=== PATIENT | male | born 1970 | race Hispanic/Latino ===

== ENCOUNTER 2017-02-28 09:39 | Emergency (ER) | payer SELFPAY ==
[2017-02-28 09:49] VITALS: BMI 28.8
[2017-02-28 09:50] VITALS: TEMP 97.9; O2SAT 97
--- NOTE | 2017-02-28 10:19 | C.PDOC ---
History Of Present Illness 48 y/o male, with history of HTN, presents to emergency department with complaint of intermittent left sided chest discomfort for the last few weeks. Patient reports he felt radiation of discomfort to the left arm / posterior shoulder last night, prompting visit. Patient reports pain worsens with movement of the arm. He also notes he lifts weights for exercise. Also admits to tobacco use. Otherwise, denies fever, chills, cough, diaphoresis, nausea, vomiting, SOB, abdominal pain. Patient does note that he has been "getting winded" after climbing 2 flights of stairs, which is unusual for him. Time Seen by Provider: 02/28/17 10:13 Chief Complaint (Nursing): Chest Pain History Per: Patient History/Exam Limitations: no limitations Onset/Duration Of Symptoms: Days, Intermittent Episodes Current Symptoms Are (Timing): Still Present Quality: "Pain" Associated Symptoms: denies: Diaphoresis Recent travel outside of the [place]: No Past Medical History Reviewed: Historical Data, Nursing Documentation, Vital Signs Vital Signs: Last Vital Signs Temp 97.9 F 02/28/17 09:49 Pulse 68 02/28/17 12:25 Resp 18 02/28/17 09:49 BP 105/70 02/28/17 12:25 Pulse Ox 97 02/28/17 12:32 - Medical History PMH: HTN Family History: States: Unknown Family Hx - Social History Hx Alcohol Use: No Hx Substance Use: No Review Of Systems Except As Marked, All Systems Reviewed And Found Negative. Constitutional: Negative for: Fever, Chills Cardiovascular: Positive for: Chest Pain. Negative for: Palpitations, Edema, Light Headedness Respiratory: Positive for: SOB with Excertion. Negative for: Cough, Shortness of Breath, Wheezing Gastrointestinal: Negative for: Nausea, Vomiting, Abdominal Pain Skin: Negative for: Rash Neurological: Negative for: Headache, Dizziness Physical Exam - Physical Exam Appears: Non-toxic, No Acute Distress, Other (well-developed muscular male) Skin: Normal Color, Warm, Dry, No Rash Head: Atraumatic, Normacephalic Eye(s): bilateral: Normal Inspection, PERRL, EOMI Oral Mucosa: Moist Chest: Symmetrical, Tenderness (slightly reproducible pain to chest wall, discomfort with flexion/extension of left arm) Cardiovascular: Rhythm Regular Respiratory: Normal Breath Sounds, No Accessory Muscle Use, No Rales, No Rhonchi , No Wheezing Gastrointestinal/Abdominal: Soft, No Tenderness, No Guarding, No Rebound Back: Normal Inspection Extremity: Normal ROM, Capillary Refill (< 2 sec.) Neurological/Psych: Oriented x3, Normal Speech, Normal Cognition ED Course And Treatment - Laboratory Results Result Diagrams: 02/28/17 10:47 02/28/17 10:47 ECG: Interpreted By Me, Viewed By Me ECG Rhythm: Sinus Bradycardia Interpretation Of ECG: No ST/T wave elevation or depression. Rate From EC (BPM) O2 Sat by Pulse Oximetry: 97 (RA) Pulse Ox Interpretation: Normal - Radiology CXR: Interpreted by Me CXR Interpretation: Yes: No Acute Disease. No: Infiltrates Medical Decision Making Medical Decision Making: Plan: * EKG * CxR * Aspirin * Reassess Progress Notes: Disposition - Disposition Referrals: [facility] [Outside] Disposition: HOME/ ROUTINE Disposition Time: 12:49 Condition: STABLE Additional Instructions: Follow up with your doctor or our clinic. Take one aspirin a day until you see another physician. Return to the Emergency Department with any further concerns. Prescriptions: Aspirin 81 mg PO DAILY #30 tab.chew Instructions: Chest Wall Pain (ED) Forms: [facility] (Bengali), General Discharge Instructions - Clinical Impression Clinical Impression: Chest wall pain - Scribe Statement The provider has reviewed the documentation as recorded by the Scribjulian Mcgee All medical record entries made by the Scribe were at my direction and personally dictated by me. I have reviewed the chart and agree that the record accurately reflects my personal performance of the history, physical exam, medical decision making, and the department course for this patient. I have also personally directed, reviewed, and agree with the discharge instructions and disposition.
[2017-02-28 10:51] LABS: BASO % 0.4 % (0.0-2.0); EOS # 0.1 K/uL (0.0-0.7); EOS % 0.9 % (0.0-4.0); HEMATOCRIT 44.7 % (35.0-51.0); LYMPH # 1.1 K/uL (1.0-4.3); LYMPH % 12.3 % (20.0-40.0); MEAN CELL VOLUME 93.6 fL (80.0-94.0); MEAN CORPUSCULAR HEMOGLOBIN 32.2 pg (27.0-31.0); MEAN CORPUSCULAR HGB CONC 34.4 g/dL (33.0-37.0); MEAN PLATELET VOLUME 8.8 fL (7.2-11.7); MONO # 0.4 K/uL (0.0-0.8); MONO % 4.2 % (0.0-10.0); RED CELL DISTRIBUTION WIDTH 13.5 % (11.5-14.5); WHITE BLOOD COUNT 8.9 K/uL (4.8-10.8)
[2017-02-28 10:58] LABS: CHLORIDE 99 mmol/L (98-107); SODIUM 137 mmol/L (132-148)
[2017-02-28 10:59] LABS: POTASSIUM 4.1 mmol/L (3.6-5.2)
[2017-02-28 11:01] LABS: ALB/GLOB RATIO 1.5 (1.0-2.1); ALKALINE PHOSPHATASE 45 U/L (38-126); ALT/SGPT 56 U/L (21-72); AST/SGOT 31 U/L (17-59); BILIRUBIN,TOTAL 0.8 mg/dL (0.2-1.3); BLOOD UREA NITROGEN 13 mg/dL (9-20); CALCIUM 8.6 mg/dl (8.6-10.4); CARBON DIOXIDE 24 mmol/L (22-30); CHOLESTEROL 152 mg/dL (0-199); GFR AFRICAN-AMERICAN > 60; GLUCOSE,RANDOM 97 mg/dL (75-110); TOTAL PROTEIN 7.4 g/dL (6.3-8.3)
[2017-02-28 12:26] VITALS: BP 105/70
--- NOTE | 2017-02-28 12:27 | RAD ---
HISTORY: SOB COMPARISON: None available. TECHNIQUE: Chest, one view. FINDINGS: Examination limited by habitus. LUNGS: No focal consolidation. Please note that chest x-ray has limited sensitivity for the detection of pulmonary masses. PLEURA: No significant pleural effusion identified. No definite pneumothorax . CARDIOVASCULAR: Borderline cardiomegaly. OSSEOUS STRUCTURES: No acute osseous abnormality identified. VISUALIZED UPPER ABDOMEN: Unremarkable. OTHER FINDINGS: None. IMPRESSION: No focal consolidation, significant pleural effusion, or definite pneumothorax identified.
[2017-02-28 13:02] VITALS: PULSE 60; RESP 16
--- NOTE | 2017-03-05 06:43 | CARD ---
APPROVED REPORT EKG Measurement Heart [id number] <Conclusion> Sinus bradycardia Otherwise normal ECG
== END 2017-02-28 13:01 | disposition home or self-care (01) ==
LOC: C.ER 09:39
DX: R07.89 Other chest pain (principal)

== ENCOUNTER 2018-04-09 09:54 | Inpatient (IN) | payer MEDICAID, OTHER, SELFPAY ==
[2018-04-09 09:54] VITALS: BMI 28.8
[2018-04-09] MEDS ORDERED: Sodium Chloride 0.9% 1,000 ML IV ONE (10:33)
[2018-04-09] MEDS ORDERED: Aspirin 325 mg EC Tablets PO STA (10:33)
[2018-04-09] MEDS ORDERED: Sodium Chloride 0.9% 1,000 ML ONE (10:46)
[2018-04-09 10:47] LABS: BASO % 0.4 % (0.0-2.0); EOS # 0.1 K/uL (0.0-0.7); EOS % 0.8 % (0.0-4.0); HEMOGLOBIN 15.7 g/dL (12.0-18.0); LYMPH # 1.2 K/uL (1.0-4.3); LYMPH % 18.4 % (20.0-40.0); MEAN CELL VOLUME 92.1 fL (80.0-94.0); MEAN CORPUSCULAR HEMOGLOBIN 31.7 pg (27.0-31.0); MEAN CORPUSCULAR HGB CONC 34.4 g/dL (33.0-37.0); MEAN PLATELET VOLUME 8.6 fL (7.2-11.7); MONO # 0.3 K/uL (0.0-0.8); MONO % 4.2 % (0.0-10.0); NEUT % 76.2 % (50.0-75.0); RBC 4.95 Mil/uL (4.40-5.90); RED CELL DISTRIBUTION WIDTH 13.7 % (11.5-14.5); WHITE BLOOD COUNT 6.6 K/uL (4.8-10.8)
[2018-04-09 10:58] LABS: INR 1.1
[2018-04-09 11:01] LABS: ALB/GLOB RATIO 1.6 (1.0-2.1); ALBUMIN 4.6 g/dL (3.5-5.0); ALT/SGPT 55 U/L (21-72); AST/SGOT 48 U/L (17-59); BLOOD UREA NITROGEN 16 mg/dL (9-20); CALCIUM 9.3 mg/dl (8.6-10.4); GFR NON-AFRICAN AMERICAN > 60
--- NOTE | 2018-04-09 11:12 | RAD ---
HISTORY: chest pain COMPARISON: Chest x-ray performed 02/28/17 TECHNIQUE: Chest PA and lateral FINDINGS: Examination limited by habitus. LUNGS: No focal consolidation. Please note that chest x-ray has limited sensitivity for the detection of pulmonary masses. PLEURA: No significant pleural effusion identified. No definite pneumothorax . CARDIOVASCULAR: The cardiomediastinal silhouette appears within normal limits of size. No atherosclerotic calcification present. OSSEOUS STRUCTURES: Degenerative changes of the spine. VISUALIZED UPPER ABDOMEN: Unremarkable. OTHER FINDINGS: None. IMPRESSION: No acute findings identified.
[2018-04-09 11:13] LABS: B-TYPE NATRIURETIC PEPTIDE 53.2 pg/mL (0-900)
--- NOTE | 2018-04-09 11:24 | C.PDOC ---
History Of Present Illness 48 yo male w/PMHx of HTN, smoker, comes in for evaluation of left sided chest pain intermittent for past 2 weeks. Pt describes pain as left sided, intermittent radiation to Left upper back, " squeezing" associated with intermittent lightheadedness. Pt reports, takes Atenolol 50 mg, Triamterine/HCTZ daily "and noted for past few weeks feeling weak, no energy, wonder if BP medication have side effect". last stress test- 10 yrs ago. Pt admits, (+) Family Hx for CAD, PA. Otherwise ,pt denies fever, hills, recent illness, headache, vertigo, visual changes, focal deficits, neck pain, SOB, dyspnea, diaphoresis, palpitation, abd. pain, V/D, back pain, UTI sx. Ambulate to Ed for evaluation, not in any apparent distress. Time Seen by Provider: 04/09/18 10:21 Chief Complaint (Nursing): Chest Pain History Per: Patient Past Medical History Reviewed: Historical Data, Nursing Documentation, Vital Signs Vital Signs: Last Vital Signs Temp 97.8 F 04/09/18 10:04 Pulse 77 04/09/18 10:04 Resp 20 04/09/18 10:04 BP 148/81 04/09/18 10:04 Pulse Ox 96 04/09/18 10:04 - Medical History PMH: HTN Surgical History: No Surg Hx Family History: States: PA, CAD (father, brother) - Social History Hx Tobacco Use: Yes Hx Alcohol Use: Yes (social) Hx Substance Use: No - Immunization History Hx Tetanus Toxoid Vaccination: No Hx Influenza Vaccination: No Hx Pneumococcal Vaccination: No Review Of Systems Except As Marked, All Systems Reviewed And Found Negative. Constitutional: Negative for: Fever, Chills ENT: Negative for: Throat Pain Cardiovascular: Positive for: Chest Pain, Light Headedness. Negative for: Palpitations, Orthopnea, Paroxysmal Noc. Dyspnea, Edema Respiratory: Negative for: Cough, Shortness of Breath, Wheezing Gastrointestinal: Negative for: Nausea, Vomiting, Abdominal Pain, Diarrhea Genitourinary: Negative for: Dysuria Musculoskeletal: Negative for: Neck Pain Skin: Negative for: Rash Neurological: Negative for: Weakness, Numbness, Headache, Dizziness Physical Exam - Physical Exam Appears: Well, Non-toxic, No Acute Distress Skin: Normal Color, Warm, Dry, No Rash Head: Normacephalic Eye(s): bilateral: PERRL Nose: No Flaring Oral Mucosa: Moist Throat: No Erythema, No Drooling Neck: Supple Cardiovascular: Rhythm Regular, No Murmur, No JVD, Other ((-) carotid bruits B/L) Respiratory: No Decreased Breath Sounds, No Accessory Muscle Use, No Stridor, No Wheezing Gastrointestinal/Abdominal: Soft, No Tenderness, No Distention, No Guarding, No Rebound Back: No CVA Tenderness Extremity: Normal ROM, No Pedal Edema, No Calf Tenderness, No Swelling Neurological/Psych: Oriented x3, Normal Speech ED Course And Treatment - Laboratory Results Result Diagrams: 04/09/18 10:43 04/09/18 10:43 ECG: Interpreted By Me, Viewed By Me (and by Martín) ECG Interpretation: Abnormal Interpretation Of ECG: SR@70/min, occasional single PVCs, no acute T wave or ST- T changes. Compare to old ine from 02/28/17 O2 Sat by Pulse Oximetry: 96 Pulse Ox Interpretation: Normal - Radiology CXR: Interpreted by Me, Read By Radiologist CXR Interpretation: Yes: No Acute Disease - Other Rad CXR X-Ray: Viewed By Me, Read By Radiologist Interpretation: FINDINGS: Examination limited by habitus. LUNGS: No focal consolidation. Please note that chest x-ray has limited sensitivity for the detection of pulmonary masses. PLEURA: No significant pleural effusion identified. No definite pneumothorax . CARDIOVASCULAR: The cardiomediastinal silhouette appears within normal limits of size. No atherosclerotic calcification present. OSSEOUS STRUCTURES: Degenerative changes of the spine. VISUALIZED UPPER ABDOMEN: Unremarkable. OTHER FINDINGS: None. IMPRESSION: No acute findings identified. Progress Note: Pt was OBS in ED for 2 hours and remained stable. on re-eval, appears without significant improvement. Blood work review Troponin- negative. EKG review and appears abnormal compare to previous from 02/2017, (+) FHX of CAD early age. case discussed with Hospitalist and admission arranged to tele with Dx: CP, abnormal EKG. results review and discussed with pt, agrees with plan. Disposition - Disposition Disposition: HOME/ ROUTINE Disposition Time: 11:59 Condition: STABLE - Clinical Impression Clinical Impression: Chest pain
[2018-04-09 11:27] LABS: URINE BILIRUBIN NEGATIVE (NEGATIVE); URINE BLOOD NEGATIVE (NEGATIVE); URINE CLARITY Clear (Clear); URINE COLOR Yellow (YELLOW); URINE GLUCOSE (UA) NORMAL (Normal); URINE LEUKOCYTE ESTERASE NEG Leu/uL (Negative); URINE PROTEIN NEGATIVE (NEGATIVE); URINE UROBILINOGEN NORMAL mg/dL (0.2-1.0)
[2018-04-09 11:42] LABS: BARBITURATES, UR NEGATIVE (NEGATIVE); BENZODIAZEPINES, UR NEGATIVE (NEGATIVE); OPIATES, UR NEGATIVE (NEGATIVE); PHENCYCLIDINE, UR NEGATIVE (NEGATIVE)
[2018-04-09] MEDS: hydroCHLOROthiazide-Triamterene 25 mg-37.5 mg Cap UD PO SCH (14:15)
--- NOTE | 2018-04-09 14:40 | CP.PCM.HP ---
<Yolis Rivera - Last Filed: 04/09/18 15:07> History of Present Illness - History of Present Illness History of Present Illness: 48 year old male with PMHx HTN presents to the ED with chest pain x 2 weeks. It is a 7-8/10 pain that comes and goes for various amounts of time. The pain is sharp in quality and can be squeezing his chest. The pain is non-exertional and non-reproducible. Patient states he gets short of breath during the episodes but denies diaphoresis. Patient has been decreasing his physical activity due to the pain and started taking a baby aspirin daily, with minimal relief. Of note, patient feels a generalized weakness for a month with some headaches and dizziness when standing up. He was sick with a common cold a month ago and still has some nasal stuffiness/congestion. Patient denies cough, sore throat, dysphagia, hematemesis, hematochezia, dysuria, increased urinary freq, leg pain/swelling, rash, bruising/bleeding, recent travel, and sick contacts. Despite losing appetite and eating less, patient denies weight changes over the past month. He states there is some vague abdominal pain that comes and goes and some nausea and vomiting that is also transient. Otherwise no fevers and chills. PMHx: HTN PSHx: cardiac cath about 10 years about in [facility] due to patient's HTN and significant family history of heart disease. Pt states cath w as wnl. B/l hip surgery with hardware 2009, right knee meniscus procedure earlier than 2009. Previous ED visits: last year patient had chest pain as well but not as severe. He returned home the same day since it was just from an "infection." Previous hospitalizations: None FHx: father got heart disease in mid 50s and from it at 63 y/o, mom and sisters with lung CA (all were smokers). Denies fhx of strokes and cancer SHx: Tobacco: 20 years x 1 ppd, lately 1 cigarette a day for last 2 weeks since his chest pain. 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 Living: Alone in [place], with family in [facility] nearby (8 siblings). Works as a ethanol maintenance mechanic in [place] Meds: triamterene/HCTZ 37.5/25, atenolol 50 mg ED course: CXR, EKG, 1L NS IV, aspirin 325 mg Allergies: NKDA PMD: Caro Estrada in [facility] Present on Admission - Present on Admission Any Indicators Present on Admission: Yes Past Patient History - Past Social History Smoking Status: Light Smoker < 10 Cigarettes Daily - CARDIAC Hx Hypertension: Yes - PSYCHIATRIC Hx Substance Use: No - SURGICAL HISTORY Hx Surgeries: Yes Hx Musculoskeletal Surgery: Yes (Stefano Hip surgery) Other/Comment: B/L HIP - ANESTHESIA Hx Anesthesia: Yes Hx Anesthesia Reactions: No Meds Allergies/Adverse Reactions: Allergies Allergy/AdvReac Type Severity Reaction Status Date / Time No Known Allergies Allergy Verified 04/09/18 10:07 Physical Exam - Constitutional Appears: Well - Head Exam Head Exam: ATRAUMATIC, NORMAL INSPECTION - Eye Exam Eye Exam: Normal appearance - ENT Exam ENT Exam: Mucous Membranes Moist, Normal External Ear Exam, TM's Normal Bilaterally. absent: Mucous Membranes Dry Additional comments: Nasal turbinates swollen and erythematous - Neck Exam Neck exam: Positive for: Full Rom, Normal Inspection. Negative for: Lymphadenopathy, Meningismus, Tenderness, Thyromegaly - Respiratory Exam Respiratory Exam: Chest Wall Tenderness (On left pectoralis but does not reproduce his chest pain the same way), Clear to Auscultation Bilateral, NORMAL BREATHING PATTERN. absent: Accessory Muscle Use, Decreased Breath Sounds, Prolonged Expiratory Phase, Rales, Rhonchi, Wheezes, Respiratory Distress, Stridor - Cardiovascular Exam Cardiovascular Exam: REGULAR RHYTHM, +S1, +S2. absent: Bradycardia, Tachycardia, Diastolic murmur, Irregular Rhythm, Systolic Murmur - GI/Abdominal Exam GI & Abdominal Exam: Normal Bowel Sounds, Soft. absent: Distended, Firm, Tenderness Additional comments: Central obesity - Extremities Exam Extremities exam: Positive for: normal capillary refill, normal inspection, pedal pulses present. Negative for: joint swelling, tenderness Additional comments: peripheral pulses strong, no edema - Back Exam Back exam: NORMAL INSPECTION - Neurological Exam Neurological exam: Alert, CN II-XII Intact, Normal Gait, Oriented x3, Reflexes Normal Additional comments: 5/5 muscle strength UE and LE - Psychiatric Exam Psychiatric exam: Normal Affect, Normal Mood - Skin Skin Exam: Dry, Intact, Normal Color, Warm Results - Vital Signs Recent Vital Signs: Last Vital Signs Temp 97.8 F 04/09/18 10:04 Pulse 48 L 04/09/18 14:10 Resp 16 04/09/18 14:10 BP 107/56 L 04/09/18 14:10 Pulse Ox 95 04/09/18 14:10 - Labs Result Diagrams: 04/09/18 10:43 04/09/18 10:43 Labs: Laboratory Results - last 24 hr 04/09/18 04/09/18 04/09/18 10:43 10:43 10:43 WBC 6.6 RBC 4.95 Hgb 15.7 Hct 45.6 MCV 92.1 MCH 31.7 H MCHC 34.4 RDW 13.7 Plt Count 212 MPV 8.6 Neut % (Auto) 76.2 H Lymph % (Auto) 18.4 L [place] % (Auto) 4.2 Eos % (Auto) 0.8 Baso % (Auto) 0.4 Neut # (Auto) 5.0 Lymph # (Auto) 1.2 [place] # (Auto) 0.3 Eos # (Auto) 0.1 Baso # (Auto) 0.0 PT 12.0 INR 1.1 APTT 31 Sodium 137 Potassium 4.1 Chloride 99 Carbon Dioxide 27 Anion Gap 15 BUN 16 Creatinine 0.7 L Est GFR ( Amer) > 60 Est GFR (Non-Af Amer) > 60 Random Glucose 110 Calcium 9.3 Total Bilirubin 0.3 AST 48 ALT 55 Alkaline Phosphatase 49 Troponin I < 0.0120 NT-Pro-B Natriuret Pep 53.2 Total Protein 7.5 Albumin 4.6 Globulin 2.9 Albumin/Globulin Ratio 1.6 Urine Color Urine Clarity Urine pH Ur Specific [place] Urine Protein Urine Glucose (UA) Urine Ketones Urine Blood Urine Nitrate Urine Bilirubin Urine Urobilinogen Ur Leukocyte Esterase Urine WBC (Auto) Urine RBC (Auto) Urine Opiates Screen Urine Methadone Screen Ur Barbiturates Screen Ur Phencyclidine Scrn Ur Amphetamines Screen U Benzodiazepines Scrn U Oth Cocaine Metabols U Cannabinoids Screen 04/09/18 04/09/18 11:19 11:19 WBC RBC Hgb Hct MCV MCH MCHC RDW Plt Count MPV Neut % (Auto) Lymph % (Auto) [place] % (Auto) Eos % (Auto) Baso % (Auto) Neut # (Auto) Lymph # (Auto) [place] # (Auto) Eos # (Auto) Baso # (Auto) PT INR APTT Sodium Potassium Chloride Carbon Dioxide Anion Gap BUN Creatinine Est GFR ( Amer) Est GFR (Non-Af Amer) Random Glucose Calcium Total Bilirubin AST ALT Alkaline Phosphatase Troponin I NT-Pro-B Natriuret Pep Total Protein Albumin Globulin Albumin/Globulin Ratio Urine Color Yellow Urine Clarity Clear Urine pH 5.0 Ur Specific [place] 1.013 Urine Protein Negative Urine Glucose (UA) Normal Urine Ketones Negative Urine Blood Negative Urine Nitrate Negative Urine Bilirubin Negative Urine Urobilinogen Normal Ur Leukocyte Esterase Neg Urine WBC (Auto) 1 Urine RBC (Auto) < 1 Urine Opiates Screen Negative Urine Methadone Screen Negative Ur Barbiturates Screen Negative Ur Phencyclidine Scrn Negative Ur Amphetamines Screen Negative U Benzodiazepines Scrn Negative U Oth Cocaine Metabols Negative U Cannabinoids Screen Negative Assessment & Plan - Assessment and Plan (Free Text) Assessment: 48 y/o male with HTN presents with chest pain x 2 weeks. Patient will be admitted for cardiac work up. Currently hemodynamically stable and waiting for inpatient bed. Chest pain r/o ACS Patient with cardiac risk factors (HTN, smoking and Fhx) for ACS. So far CXR neg, UA neg, UDS neg -trops x 3 with serial EKGs - second at 4:45pm and third at 10:45pm -telemetry monitoring -TSH, T4 -fasting lipid panel 04/10 AM -A1c -CBC wnl; no need to repeat for tomorrow 04/10 -LFTs wnl; just repeat BMP for tomorrow 04/10 -added crestor 5 mg daily for cardioprotection -consulted cardiology (Dr. Ricks) -ordered lexiscan for 04/10 -NPO after midnight HTN -continue with home meds --triamterene HCTZ 37.5/25 daily --atenolol 50 mg daily -routine vitals to monitor daily Nicotine addiction -nicoderm daily -smoking cessation counseling Possible URI Patient c/o congestion -rapid flu swab -hold off on any decongestants for now DVT ppx: SCDs, heparin 5000 sc q8h GI ppx: not indicated Diet: heart healthy, low Na, low carb Code: full Proxy: Esteban (brother): [phone] Case d/w Dr. Jen Rivera, DO PGY1 <Isreal Carranza - Last Filed: 04/13/18 01:27> Results - Vital Signs Recent Vital Signs: Last Vital Signs Temp 98.3 F 04/11/18 07:00 Pulse 49 L 04/11/18 11:54 Resp 18 04/11/18 07:00 BP 113/68 04/11/18 07:00 Pulse Ox 97 04/11/18 07:00 - Labs Result Diagrams: 04/09/18 10:43 04/09/18 10:43 Attending/Attestation - Attestation I have personally seen and examined this patient.: Yes I have fully participated in the care of the patient.: Yes I have reviewed all pertinent clinical information: Yes Notes (Text): 04/13/18 01:27 This is a late entry. History, Physical, Assessment and Plan and all orders were gone over in detail with resident Dr. Fer Rivera at the time of admission. Isreal Carranza D.O.
[2018-04-09 14:51] LABS: T4 6.43 ug/dL (5.5-11.0)
--- NOTE | 2018-04-10 02:12 | CON ---
DATE: 04/09/2018 REASON FOR CONSULTATION: Chest pain. HISTORY OF PRESENT ILLNESS: The patient is a 48-year-old male who has no significant past medical history except for hypertension and presents because of chest tightness that is intermittent, radiating to the left shoulder, and at times to the upper back. The patient denies any associated diaphoresis. SOCIAL HISTORY: Nonsmoker, nondrinker. MEDICATIONS: Aspirin 81 mg once a day, Crestor 5 mg once a day, Dyazide one tablet once a day, subcutaneous heparin 5000 units every 8 hours, Nicoderm patch, atenolol 50 mg daily. REVIEW OF SYSTEMS: No fever or chills. No palpitation. No dizziness or syncope. PHYSICAL EXAMINATION: GENERAL: The patient is an middle-aged male who does not appear to be in any distress. VITAL SIGNS: Blood pressure 109/59, heart rate 66, temperature 97.8,and respirations 18. HEENT: Normocephalic. CHEST: Clear. HEART: S1 and S2 are regular. ABDOMEN: Soft. EXTREMITIES: No edema. EKG revealed sinus rhythm with occasional APCs. LABORATORY DATA: Today's hemoglobin, hematocrit, white count and platelet count are within normal limits. Today's SMA-7 is within normal limits except for creatinine of 0.7. TSH level and T4 level are within normal limits. One set of troponin is negative. Urine drug screen is negative. PT, INR and PTT are within normal limit. Influenza type A and B serology is negative. Chest x-ray report, no acute finding. ASSESSMENT: 1. Chest pain, rule out myocardial infarction. 2. History of hypertension. RECOMMENDATIONS: Continue current aspirin, Crestor, Dyazide, subcutaneous heparin, and Tenormin. Obtain serum D-dimer. Guilherme Ricks MD
[2018-04-10] MEDS ORDERED: Caffeine Citrated **INJ** 20 MG/ML IV ONE (07:52)
--- NOTE | 2018-04-10 10:38 | CP.PCM.PN ---
<Yolis Rivera - Last Filed: 04/10/18 15:38> Subjective - Date & Time of Evaluation Date of Evaluation: 04/10/18 Time of Evaluation: 10:38 - Subjective Subjective: Patient seen and examined at bedside this morning s/p part 1 stress test. Patient still states he has on and off chest pain. Otherwise no complaints overnight. Denies fever, chills, night sweats, vomiting, diarrhea, abdominal pain. Objective - Vital Signs/Intake and Output Vital Signs (last 24 hours): Temp Pulse Resp BP Pulse Ox 98.1 F 51 L 20 123/70 95 04/10/18 07:00 04/10/18 07:00 04/10/18 07:00 04/10/18 07:00 04/10/18 07:00 - Medications Medications: Current Medications Aspirin (Aspirin Chewable) 81 mg PO DAILY [facility] Last Admin: 04/09/18 14:30 Dose: Not Given Atenolol (Tenormin) 50 mg PO DAILY [facility] Last Admin: 04/09/18 14:15 Dose: Not Given Heparin Sodium (Porcine) (Heparin) 5,000 units SC Q8 [facility] Last Admin: 04/10/18 05:30 Dose: 5,000 units Influenza Virus Vaccine (Fluzone Quad [id number]) 60 mcg IM .ONCE ONE Stop: 04/11/18 10:01 Nicotine (Nicoderm Cq) 1 patch TD DAILY [facility] Last Admin: 04/09/18 15:49 Dose: 1 patch Pneumococcal Polyvalent Vaccine (Pneumovax 23 Vaccine) 0.5 ml IM .ONCE ONE Stop: 04/12/18 10:01 Rosuvastatin Calcium (Crestor) 5 mg PO HS [facility] Last Admin: 04/09/18 21:19 Dose: 5 mg Triamterene/HCTZ (Dyazide 25 Mg-37.5 Mg) 1 cap PO DAILY [facility] Last Admin: 04/09/18 14:15 Dose: Not Given - Labs Labs: 04/09/18 10:43 04/09/18 10:43 PT 12.0 SECONDS (9.7-12.2) 04/09/18 10:43 INR 1.1 04/09/18 10:43 APTT 31 SECONDS (21-34) 04/09/18 10:43 - Constitutional Appears: Well, Non-toxic - Head Exam Head Exam: ATRAUMATIC, NORMAL INSPECTION - Eye Exam Eye Exam: EOMI, Normal appearance - Neck Exam Neck Exam: Normal Inspection - Respiratory Exam Respiratory Exam: Clear to Ausculation Bilateral, NORMAL BREATHING PATTERN. absent: Rales, Rhonchi, Wheezes, Respiratory Distress, Stridor - Cardiovascular Exam Cardiovascular Exam: REGULAR RHYTHM - GI/Abdominal Exam GI & Abdominal Exam: Soft, Normal Bowel Sounds. absent: Bruit, Distended, Firm, Guarding, Rigid, Tenderness - Extremities Exam Extremities Exam: Normal Inspection. absent: Tenderness Additional comments: peripheral pulses strong, no peripheral edema - Neurological Exam Neurological Exam: Alert, Awake, Oriented x3 - Psychiatric Exam Psychiatric exam: Normal Affect, Normal Mood - Skin Skin Exam: Dry, Intact, Normal Color, Warm Assessment and Plan - Assessment and Plan (Free Text) Assessment: 48 y/o male with HTN presents with chest pain x 2 weeks. Patient will be admitted for cardiac work up. Currently hemodynamically stable on med tele floor. Chest pain r/o ACS Patient with cardiac risk factors (HTN, smoking and Fhx) for ACS. So far CXR neg, UA neg, UDS neg -trops x 3 with serial EKGs - negative for acute ischemia -telemetry monitoring -fasting lipid panel wnl -CBC and LFTs on admission wnl -added crestor 5 mg daily for cardioprotection -consulted cardiology (Dr. Ricks) -ordered lexiscan - pending part 2 afternoon 04/10 HTN -continue with home meds --triamterene HCTZ 37.5/25 daily --atenolol 50 mg daily -routine vitals to monitor daily Bradycardia -EKG NSR with bradycardia -HR 45 (Lowest overnight) -consider possibly decreasing BB atenolol dose -follow cardiology recs Impaired glucose tolerance -A1c - 5.9% -suggest lifestyle changes Nicotine addiction -nicoderm daily -smoking cessation counseling Possible URI Patient c/o congestion -rapid flu swab -hold off on any decongestants for now DVT ppx: SCDs, heparin 5000 sc q8h GI ppx: not indicated Diet: heart healthy, low Na, low carb Code: full Proxy: Esteban (brother): [phone] Case d/w Dr. Jen Rivera, DO PGY1 <Isreal Carranza - Last Filed: 04/13/18 01:28> Objective - Vital Signs/Intake and Output Vital Signs (last 24 hours): Temp Pulse Resp BP Pulse Ox 98.3 F 49 L 18 113/68 97 04/11/18 07:00 04/11/18 11:54 04/11/18 07:00 04/11/18 07:00 04/11/18 07:00 - Labs Labs: 04/09/18 10:43 04/09/18 10:43 PT 12.0 SECONDS (9.7-12.2) 04/09/18 10:43 INR 1.1 04/09/18 10:43 APTT 31 SECONDS (21-34) 04/09/18 10:43 Attending/Attestation - Attestation I have personally seen and examined this patient.: Yes I have fully participated in the care of the patient.: Yes I have reviewed all pertinent clinical information, including history, physical exam and plan: Yes Notes (Text): 04/13/18 01:28 This is a late entry. Care of this patient was gone over in detail with resident Dr. Fer Rivera. Isreal Carranza D.O.
[2018-04-10] MEDS: hydroCHLOROthiazide-Triamterene 25 mg-37.5 mg Cap UD PO SCH (12:05)
--- NOTE | 2018-04-10 19:03 | PN ---
DATE: 04/10/2018 SUBJECTIVE: The patient denies any chest pain or shortness of breath. PHYSICAL EXAMINATION: VITAL SIGNS: Blood pressure 114/64, heart rate 59, temperature 98.1, respirations 20. HEENT: Normocephalic. CHEST: Clear. HEART: S1 and S2 regular. EXTREMITIES: No edema. LABORATORY DATA: Three sets of troponins are negative. Lipid profile is within normal limits. The patient underwent exercise Myoview stress test. He exercised for 9-1/2 minutes on Uday protocol, achieved 87% of predicted maximal heart rate. No chest pain or ischemic EKG changes. Isolated APCs and isolated PVCs were noted. ASSESSMENT: Chest pain, myocardial infarction ruled out. RECOMMENDATIONS: Case was discussed with Dr. Carranza. The patient to continue on aspirin, Crestor, and Dyazide. I will follow the Myoview imaging study once it is available. Guilherme Ricks MD
[2018-04-11 05:00] VITALS: O2SAT 97
[2018-04-11 08:30] VITALS: BP 113/68; RESP 18; TEMP 98.3
--- NOTE | 2018-04-11 09:51 | CP.PCM.DIS ---
<Yolis Rivera - Last Filed: 04/11/18 10:07> Provider - Provider Date of Admission: 04/09/18 12:00 Attending physician: Isreal Carranza MD Primary care physician: Dr. Estrada Consults: Dr. Ricks - cardiology Time Spent in preparation of Discharge (in minutes): 45 Hospital Course - Lab Results Lab Results: Most Recent Lab Values WBC 6.6 K/uL (4.8-10.8) 04/09/18 10:43 RBC 4.95 Mil/uL (4.40-5.90) 04/09/18 10:43 Hgb 15.7 g/dL (12.0-18.0) 04/09/18 10:43 Hct 45.6 % (35.0-51.0) 04/09/18 10:43 MCV 92.1 fL (80.0-94.0) 04/09/18 10:43 MCH 31.7 pg (27.0-31.0) H 04/09/18 10:43 MCHC 34.4 g/dL (33.0-37.0) 04/09/18 10:43 RDW 13.7 % (11.5-14.5) 04/09/18 10:43 Plt Count 212 K/uL (130-400) 04/09/18 10:43 MPV 8.6 fL (7.2-11.7) 04/09/18 10:43 Neut % (Auto) 76.2 % (50.0-75.0) H 04/09/18 10:43 Lymph % (Auto) 18.4 % (20.0-40.0) L 04/09/18 10:43 Patrick % (Auto) 4.2 % (0.0-10.0) 04/09/18 10:43 Eos % (Auto) 0.8 % (0.0-4.0) 04/09/18 10:43 Baso % (Auto) 0.4 % (0.0-2.0) 04/09/18 10:43 Neut # (Auto) 5.0 K/uL (1.8-7.0) 04/09/18 10:43 Lymph # (Auto) 1.2 K/uL (1.0-4.3) 04/09/18 10:43 Patrick # (Auto) 0.3 K/uL (0.0-0.8) 04/09/18 10:43 Eos # (Auto) 0.1 K/uL (0.0-0.7) 04/09/18 10:43 Baso # (Auto) 0.0 K/uL (0.0-0.2) 04/09/18 10:43 PT 12.0 SECONDS (9.7-12.2) 04/09/18 10:43 INR 1.1 04/09/18 10:43 APTT 31 SECONDS (21-34) 04/09/18 10:43 D-Dimer, Quantitative < 200 ng/mlDDU (0-243) 04/09/18 16:46 Sodium 137 mmol/L (132-148) 04/09/18 10:43 Potassium 4.1 mmol/L (3.6-5.2) 04/09/18 10:43 Chloride 99 mmol/L (98-107) 04/09/18 10:43 Carbon Dioxide 27 mmol/L (22-30) 04/09/18 10:43 Anion Gap 15 (10-20) 04/09/18 10:43 BUN 16 mg/dL (9-20) 04/09/18 10:43 Creatinine 0.7 mg/dL (0.8-1.5) L 04/09/18 10:43 Est GFR ( Amer) > 60 04/09/18 10:43 Est GFR (Non-Af Amer) > 60 04/09/18 10:43 Random Glucose 110 mg/dL (75-110) 04/09/18 10:43 Hemoglobin A1c 5.9 % (4.2-6.5) 04/09/18 14:24 Calcium 9.3 mg/dl (8.6-10.4) 04/09/18 10:43 Phosphorus 3.4 mg/dL (2.5-4.5) 04/10/18 06:53 Magnesium 2.0 mg/dL (1.6-2.3) 04/10/18 06:53 Total Bilirubin 0.3 mg/dL (0.2-1.3) 04/09/18 10:43 AST 48 U/L (17-59) 04/09/18 10:43 ALT 55 U/L (21-72) 04/09/18 10:43 Alkaline Phosphatase 49 U/L (38-126) 04/09/18 10:43 Troponin I < 0.0120 ng/mL (0.00-0.120) 04/09/18 22:47 NT-Pro-B Natriuret Pep 53.2 pg/mL (0-900) 04/09/18 10:43 Total Protein 7.5 g/dL (6.3-8.3) 04/09/18 10:43 Albumin 4.6 g/dL (3.5-5.0) 04/09/18 10:43 Globulin 2.9 gm/dL (2.2-3.9) 04/09/18 10:43 Albumin/Globulin Ratio 1.6 (1.0-2.1) 04/09/18 10:43 Triglycerides 63 mg/dL (0-149) 04/10/18 06:53 Cholesterol 144 mg/dL (0-199) 04/10/18 06:53 LDL Cholesterol Direct 73 mg/dL (0-129) 04/10/18 06:53 HDL Cholesterol 62 mg/dL (30-70) 04/10/18 06:53 Thyroxine (T4) 6.43 ug/dL (5.5-11.0) 04/09/18 14:24 TSH 3rd Generation 1.23 mIU/L (0.46-4.68) 04/09/18 14:24 Urine Color Yellow (YELLOW) 04/09/18 11:19 Urine Clarity Clear (Clear) 04/09/18 11:19 Urine pH 5.0 (5.0-8.0) 04/09/18 11:19 Ur Specific Sperry 1.013 (1.003-1.030) 04/09/18 11:19 Urine Protein Negative mg/dL (NEGATIVE) 04/09/18 11: Urine Glucose (UA) Normal mg/dL (Normal) 04/09/18 11: Urine Ketones Negative mg/dL (NEGATIVE) 04/09/18 11:19 Urine Blood Negative (NEGATIVE) 04/09/18 11:19 Urine Nitrate Negative (NEGATIVE) 04/09/18 11:19 Urine Bilirubin Negative (NEGATIVE) 04/09/18 11:19 Urine Urobilinogen Normal mg/dL (0.2-1.0) 04/09/18 11:19 Ur Leukocyte Esterase Neg Brenda/uL (Negative) 04/09/18 11:19 Urine WBC (Auto) 1 /hpf (0-5) 04/09/18 11:19 Urine RBC (Auto) < 1 /hpf (0-3) 04/09/18 11:19 Urine Opiates Screen Negative (NEGATIVE) 04/09/18 11:19 Urine Methadone Screen Negative (NEGATIVE) 04/09/18 11:19 Ur Barbiturates Screen Negative (NEGATIVE) 04/09/18 11:19 Ur Phencyclidine Scrn Negative (NEGATIVE) 04/09/18 11:19 Ur Amphetamines Screen Negative (NEGATIVE) 04/09/18 11:19 U Benzodiazepines Scrn Negative (NEGATIVE) 04/09/18 11:19 U Oth Cocaine Metabols Negative (NEGATIVE) 04/09/18 11:19 U Cannabinoids Screen Negative (NEGATIVE) 04/09/18 11:19 Influenza Typ A,B (EIA) Negative for flu a/b (NEGATIVE) 04/09/18 14:24 - Hospital Course Hospital Course: On admission: 48 year old male with PMHx HTN presents to the ED with chest pain x 2 weeks. It is a 7-8/10 pain that comes and goes for various amounts of time. The pain is sharp in quality and can be squeezing his chest. The pain is non-exertional and non-reproducible. Patient states he gets short of breath during the episodes but denies diaphoresis. Patient has been decreasing his physical activity due to the pain and started taking a baby aspirin daily, with minimal relief. Of note, patient feels a generalized weakness for a month with some headaches and dizziness when standing up. He was sick with a common cold a month ago and still has some nasal stuffiness/congestion. Patient denies cough, sore throat, dysphagia, hematemesis, hematochezia, dysuria, increased urinary freq, leg pain/swelling, rash, bruising/bleeding, recent travel, and sick contacts. Despite losing appetite and eating less, patient denies weight changes over the past month. He states there is some vague abdominal pain that comes and goes and some nausea and vomiting that is also transient. Otherwise no fevers and chills. On discharge: Patient stayed overnight on 04/09 and 11/13 on med tele. He was NPO first night due to the cardiac stress test the following morning. Patient has been constantly monitored on telemetry. Cardiac enzymes and EKGs were negative for acute ischemia of the heart. Dr. Ricks, quality control associate, performed stress test on patient. It was negative. Patient discharged with cardioprotective medications, his blood pressure medications, and a PPI for possible acid reflux. Patient has been encouraged to quit smoking due to increased cardiac risk with smoking. *above is just a summary of hospital events. Please see full medical records for a complete history. Discharge Instructions: -Follow up with your primary care physician and eye doctor at your soonest convenience after discharge. -Call [facility] [facility] at to help you stop smoking. Discharge Medications: -atenolol 25 mg once a day - take at 6pm (blood pressure medication) -triamterene/HCTZ 37.5/2.5 mg once a day - take at 8am (blood pressure medication) -omeprazole 20 mg once a day - take at 8am (for acid reflux) -crestor 5 mg once a day - take before bedtime at 8pm (protects the heart) -aspirin 81 mg once a day - take at 8am (protects the heart) Some medications are new and recommended by the quality control associate you saw this hospitalization, Dr. Ricks. They are to prevent you from having a heart attack. Please visit the nearest emergency room if you experience worsening chest pain, shortness of breath, and/or palpitations. *patient agrees with the above plan. - Date & Time of H&P Date of H&P: 04/11/18 Time of H&P: 10:07 Discharge Exam - Head Exam Head Exam: ATRAUMATIC, NORMAL INSPECTION - Eye Exam Eye Exam: EOMI, Normal appearance - Neck Exam Neck exam: Normal Inspection - Respiratory Exam Respiratory Exam: Clear to PA & Lateral, NORMAL BREATHING PATTERN, UNREMARKABLE. absent: Rales, Rhonchi, Wheezes, Respiratory Distress, Stridor - Cardiovascular Exam Cardiovascular Exam: REGULAR RHYTHM. absent: Diastolic murmur, Irregular Rhythm, Systolic Murmur - GI/Abdominal Exam GI & Abdominal Exam: Normal Bowel Sounds, Unremarkable. absent: Soft, Tendern ess - Back Exam Back exam: NORMAL INSPECTION - Neurological Exam Neurological exam: Alert, Oriented x3 - Psychiatric Exam Psychiatric exam: Normal Affect, Normal Mood - Skin Skin Exam: Dry, Intact, Normal Color, Warm Discharge Plan - Discharge Medications Prescriptions: Aspirin 81 mg PO DAILY #30 tab.chew Atenolol 25 mg PO DAILY #30 tablet Atorvastatin [Lipitor] 10 mg PO DIN #30 tab Omeprazole 20 mg PO DAILY #[address] Adams Calcium [Crestor] 5 mg PO HS #30 tab Triamterene/Hydrochlorothiazid [Triamterene-Hctz 37.5-25 mg Cp] 1 cap PO DAILY #30 capsule - Follow Up Plan Condition: STABLE Disposition: HOME/ ROUTINE Instructions: Heart Healthy Diet, Chest Pain (DC), Aspirin, Atenolol, Atorvastatin, Hydrochlorothiazide and Triamterene, Omeprazole, Rosuvastatin Additional Instructions: Discharge Instructions: -Follow up with your primary care physician and eye doctor at your soonest convenience after discharge. -Call [place] [facility] at to help you stop smoking. Discharge Medications: -atenolol 25 mg once a day - take at 6pm (blood pressure medication) -triamterene/HCTZ 37.5/2.5 mg once a day - take at 8am (blood pressure medication) -omeprazole 20 mg once a day - take at 8am (for acid reflux) -atorvastatin 10mg once a day - take before bedtime at 6pm (protects the heart) -aspirin 81 mg once a day - take at 8am (protects the heart) Some medications are new and recommended by the quality control associate you saw this hospitalization, Dr. Ricks. They are to prevent you from having a heart attack. Please visit the nearest emergency room if you experience worsening chest pain, shortness of breath, and/or palpitations. *patient agrees with the above plan. Referrals: Guilherme Ricks MD [Staff Provider] - <Isreal Carranza - Last Filed: 04/13/18 01:26> Provider - Provider Date of Admission: 04/09/18 12:00 Attending physician: Isreal Carranza MD Time Spent in preparation of Discharge (in minutes): 40 Hospital Course - Lab Results Lab Results: Most Recent Lab Values WBC 6.6 K/uL (4.8-10.8) 04/09/18 10:43 RBC 4.95 Mil/uL (4.40-5.90) 04/09/18 10:43 Hgb 15.7 g/dL (12.0-18.0) 04/09/18 10:43 Hct 45.6 % (35.0-51.0) 04/09/18 10:43 MCV 92.1 fL (80.0-94.0) 04/09/18 10:43 MCH 31.7 pg (27.0-31.0) H 04/09/18 10:43 MCHC 34.4 g/dL (33.0-37.0) 04/09/18 10:43 RDW 13.7 % (11.5-14.5) 04/09/18 10:43 Plt Count 212 K/uL (130-400) 04/09/18 10:43 MPV 8.6 fL (7.2-11.7) 04/09/18 10:43 Neut % (Auto) 76.2 % (50.0-75.0) H 04/09/18 10:43 Lymph % (Auto) 18.4 % (20.0-40.0) L 04/09/18 10:43 Patrick % (Auto) 4.2 % (0.0-10.0) 04/09/18 10:43 Eos % (Auto) 0.8 % (0.0-4.0) 04/09/18 10:43 Baso % (Auto) 0.4 % (0.0-2.0) 04/09/18 10:43 Neut # (Auto) 5.0 K/uL (1.8-7.0) 04/09/18 10:43 Lymph # (Auto) 1.2 K/uL (1.0-4.3) 04/09/18 10:43 Patrick # (Auto) 0.3 K/uL (0.0-0.8) 04/09/18 10:43 Eos # (Auto) 0.1 K/uL (0.0-0.7) 04/09/18 10:43 Baso # (Auto) 0.0 K/uL (0.0-0.2) 04/09/18 10:43 PT 12.0 SECONDS (9.7-12.2) 04/09/18 10:43 INR 1.1 04/09/18 10:43 APTT 31 SECONDS (21-34) 04/09/18 10:43 D-Dimer, Quantitative < 200 ng/mlDDU (0-243) 04/09/18 16:46 Sodium 137 mmol/L (132-148) 04/09/18 10:43 Potassium 4.1 mmol/L (3.6-5.2) 04/09/18 10:43 Chloride 99 mmol/L (98-107) 04/09/18 10:43 Carbon Dioxide 27 mmol/L (22-30) 04/09/18 10:43 Anion Gap 15 (10-20) 04/09/18 10:43 BUN 16 mg/dL (9-20) 04/09/18 10:43 Creatinine 0.7 mg/dL (0.8-1.5) L 04/09/18 10:43 Est GFR ( Amer) > 60 04/09/18 10:43 Est GFR (Non-Af Amer) > 60 04/09/18 10:43 Random Glucose 110 mg/dL (75-110) 04/09/18 10:43 Hemoglobin A1c 5.9 % (4.2-6.5) 04/09/18 14:24 Calcium 9.3 mg/dl (8.6-10.4) 04/09/18 10:43 Phosphorus 3.4 mg/dL (2.5-4.5) 04/10/18 06:53 Magnesium 2.0 mg/dL (1.6-2.3) 04/10/18 06:53 Total Bilirubin 0.3 mg/dL (0.2-1.3) 04/09/18 10:43 AST 48 U/L (17-59) 04/09/18 10:43 ALT 55 U/L (21-72) 04/09/18 10:43 Alkaline Phosphatase 49 U/L (38-126) 04/09/18 10:43 Troponin I < 0.0120 ng/mL (0.00-0.120) 04/09/18 22:47 NT-Pro-B Natriuret Pep 53.2 pg/mL (0-900) 04/09/18 10:43 Total Protein 7.5 g/dL (6.3-8.3) 04/09/18 10:43 Albumin 4.6 g/dL (3.5-5.0) 04/09/18 10:43 Globulin 2.9 gm/dL (2.2-3.9) 04/09/18 10:43 Albumin/Globulin Ratio 1.6 (1.0-2.1) 04/09/18 10:43 Triglycerides 63 mg/dL (0-149) 04/10/18 06:53 Cholesterol 144 mg/dL (0-199) 04/10/18 06:53 LDL Cholesterol Direct 73 mg/dL (0-129) 04/10/18 06:53 HDL Cholesterol 62 mg/dL (30-70) 04/10/18 06:53 Thyroxine (T4) 6.43 ug/dL (5.5-11.0) 04/09/18 14:24 TSH 3rd Generation 1.23 mIU/L (0.46-4.68) 04/09/18 14:24 Urine Color Yellow (YELLOW) 04/09/18 11:19 Urine Clarity Clear (Clear) 04/09/18 11:19 Urine pH 5.0 (5.0-8.0) 04/09/18 11:19 Ur Specific Sperry 1.013 (1.003-1.030) 04/09/18 11:19 Urine Protein Negative mg/dL (NEGATIVE) 04/09/18 11:19 Urine Glucose (UA) Normal mg/dL (Normal) 04/09/18 11:19 Urine Ketones Negative mg/dL (NEGATIVE) 04/09/18 11:19 Urine Blood Negative (NEGATIVE) 04/09/18 11:19 Urine Nitrate Negative (NEGATIVE) 04/09/18 11:19 Urine Bilirubin Negative (NEGATIVE) 04/09/18 11:19 Urine Urobilinogen Normal mg/dL (0.2-1.0) 04/09/18 11:19 Ur Leukocyte Esterase Neg Brenda/uL (Negative) 04/09/18 11:19 Urine WBC (Auto) 1 /hpf (0-5) 04/09/18 11:19 Urine RBC (Auto) < 1 /hpf (0-3) 04/09/18 11:19 Urine Opiates Screen Negative (NEGATIVE) 04/09/18 11:19 Urine Methadone Screen Negative (NEGATIVE) 04/09/18 11:19 Ur Barbiturates Screen Negative (NEGATIVE) 04/09/18 11:19 Ur Phencyclidine Scrn Negative (NEGATIVE) 04/09/18 11:19 Ur Amphetamines Screen Negative (NEGATIVE) 04/09/18 11:19 U Benzodiazepines Scrn Negative (NEGATIVE) 04/09/18 11:19 U Oth Cocaine Metabols Negative (NEGATIVE) 04/09/18 11:19 U Cannabinoids Screen Negative (NEGATIVE) 04/09/18 11:19 Influenza Typ A,B (EIA) Negative for flu a/b (NEGATIVE) 04/09/18 14:24 Attending/Attestation - Attestation I have personally seen and examined this patient.: Yes I have fully participated in the care of the patient.: Yes I have reviewed all pertinent clinical information, including history, physical exam and plan: Yes Notes (Text): 04/13/18 01:22 This is a late entry. Patient was seen and examined at 10:15 AM 04/11/18. Received message from [employer] Repairer Dr. Ricks that patient's Lexiscan Stress Test did not show any evidence of ischemia. Explained to patient the results of his blood work, EKG, and Lexiscan Stress Test and the possibility that his chest discomfort could be secondary to GERD and therefore we will try a trial of PPI for 30 days. Explained at length the dangers of his continued smoking and contribution to GERD as well as to MIs and cancers. He stated that he would do his best to stop. He was encouraged to call the [place] [facility] hotline to find resources in his area to help him stop smoking. Atenolol dose reduced due to bradycardia. Care of this patient was gone over in detail with resident Dr. Fer Rivera. Isreal Carranza D.O.
[2018-04-11] MEDS ORDERED: Influenza Vaccine 60 MCG/0.5 ML SYR (3 yr & up) IM ONE (10:00)
[2018-04-11] MEDS: hydroCHLOROthiazide-Triamterene 25 mg-37.5 mg Cap UD PO SCH (11:32)
[2018-04-11 12:03] VITALS: PULSE 49
--- NOTE | 2018-04-11 16:35 | PN ---
DATE: 04/11/2018 SUBJECTIVE: The patient denies chest pain or shortness of breath. PHYSICAL EXAMINATION: VITAL SIGNS: Blood pressure 115/68, heart rate 52, temperature 98.3, respirations 18. LABORATORY DATA: Myoview stress test was negative with normal ejection fraction. The case was discussed with Dr. Isreal Carranza. The patient can be discharged on current medical therapy including aspirin and Crestor in view of sinus bradycardia. Guilherme Ricks MD
--- NOTE | 2018-04-11 21:22 | CARD ---
APPROVED REPORT Date of service: 04/09/2018 EKG Measurement Heart [id number] IL [id number] <Conclusion> Sinus bradycardia Otherwise normal ECG
--- NOTE | 2018-04-11 21:22 | CARD ---
APPROVED REPORT Date of service: 04/09/2018 EKG Measurement Heart [id number] DC [id number] <Conclusion> Sinus bradycardia Otherwise normal ECG
--- NOTE | 2018-04-11 21:23 | CARD ---
APPROVED REPORT Date of service: 04/09/2018 EKG Measurement Heart [id number] ID [id number] <Conclusion> Sinus rhythm with premature supraventricular complexes Otherwise normal ECG
[2018-04-12] MEDS ORDERED: Pneumococcal 23-Valent Vaccine IM ONE (10:00)
--- NOTE | 2018-04-12 11:55 | CARD ---
APPROVED REPORT Date of service: 04/10/2018 Protocol: NORA Test Type: NUCLEAR STRESS Test Indications: CP Target HR: 170 bpm Resting ECG: normal Resting Heart Rate: 66 bpm Resting Blood Pressure: 122/80mmHg submaximum (85%): 145 bpm TEST SUMMARY PRETESTWARM-UP05:[id number]/80.1. EXERCISESTAGE 103:[id number]/80.0. EXERCISESTAGE 203:[id number]/80.0. EXERCISESTAGE 303:[id number]/80.0. EXERCISESTAGE 400:314.305.277.0929/.0. [id number]:[id number]/80.2. POST EXERCISE Reason for Termination: Target heart rate achieved Target HR: No Max HR: 146 bpm 88% of Maximum Predicted HR: 170 bpm Exercise duration: 09:30 min:sec, 4 Stage Exercise capacity: 11.7METs Max Blood Pressure: 150/80mmHg Blood Pressure response to exercise: normal resting BP - appropriate response Heart Rate response to exercise: appropriate Chest Pain: No, none Angina index: 0 Arrhythmia: Yes, atrial premature beats-isolated ST Change: Yes, 0.5 mm Depression upsloping Deviation: 0 mm EXAM: Myocardial Perfusion REST/STRESS Imaging Protocol The imaging protocol used to acquire images was Rest Tc-99m/stress Tc-99m 1 day Rest Spect myocardial perfusion imaging was performed in supine position 42 minutes following the injection of 10.8 mCi of Tc-99 Myoview. Gated Stress Spect was performed 40 minutes after intravenous 29 mCi Tc-99 Myoview injection. The images were gated to evaluate regional wall motion and calculate ventricular ejection fraction.Images were reconstructed using backfilter projection method in short horizontal and verticle long axis. Spect slices were generated. RESTING DATA [id number]/min1/3 Pk. Filling Rate1.23EDV/sec LV Time to Pk. Filling Mqhr482.18msec ESV46.00mlMyocardial Jane810.00gLV Time to Pk. Ejection Wykb716.91msec Pk. Fill Rate2.08EDV/secAv. Heart Rate53.00bpm EF63.00%Pk. Emptying Rate2.86ESV/sec STRESS DATA VJJ042.90vuAH4.00L/min ESV35.00mlMyocardial Shby008.00g Pk. Fill Rate3.15EDV/sec EF73.00%Pk. Emptying Rate3.84ESV/sec 1/3 Pk. Filling Rate1.40EDV/secRegional WT score at stress:0.00 LV Time to Pk. Filling Rate:177.92msecRegional WM score at stress:0.00 LV Time to Pk. Ejection Rate:292.45msecSummed WT score at stress:0.00 Av. Heart Rate64.00bpmSummed WM score at stress:0.00 LV Perf. Quant 17 Seg. SSS0.00 17 Seg. SRS9.00 17 Seg. SDS0.00 Stress Defect Extent (% LAD)0.00Rest Defect Extent (% LAD)15.00Rev. Defect Extent (% LAD)0.00 Stress Defect Extent (% LCX)0.00Rest Defect Extent (% LCX)5.00Rev. Defect Extent (% LCX)0.00 Stress Defect Extent (% RCA)0.00Rest Defect Extent (% RCA)5.60Rev. Defect Extent (% RCA)0.00 Stress Defect Extent (% OBDULIA)0.00Rest Defect Extent (% OBDULIA)10.20Rev. Defect Extent (% OBDULIA)0.00 Other Information Quality:Fair Overall Exercise Capacity: Normal IMPRESSION Normal Myocardial Perfusion exercise stress study Conclusion 1. Negative Nyoview Stress test 2. Good Exercise tolerance. 3. Isolated APCs & PVCs were noted
== END 2018-04-11 14:37 | disposition home or self-care (01) | DRG 392 ==
LOC: C.ER 09:54 → C.9E 12:00 → C.6T 18:01
PROVIDERS: ADMIT Family Medicine; ATTEND Family Medicine
DX: K21.9 Gastro-esophageal reflux disease without esophagitis (principal); R07.89 Other chest pain; I49.3 Ventricular premature depolarization; I10 Essential (primary) hypertension; J00 Acute nasopharyngitis [common cold]; F17.200 Nicotine dependence, unspecified, uncomplicated; Z79.82 Long term (current) use of aspirin; Z80.1 Family history of malignant neoplasm of trachea, bronchus and lung; Z82.49 Family history of ischemic heart disease and other diseases of the circulatory system

== ENCOUNTER 2018-05-11 09:33 | Emergency (ER) | payer MEDICAID ==
[2018-05-11 09:40] VITALS: BMI 29.5
--- NOTE | 2018-05-11 09:52 | C.PDOC ---
Time Seen by Provider: 05/11/18 09:51 Chief Complaint (Nursing): High Blood Pressure Past Medical History Vital Signs: Last Vital Signs Temp 97.7 F 05/11/18 09:40 Pulse 59 L 05/11/18 09:40 Resp 20 05/11/18 09:40 BP 146/88 05/11/18 09:40 Pulse Ox 97 05/11/18 09:40 - Medical History PMH: HTN Denies: Chronic Kidney Disease Family History: States: Unknown Family Hx, [place], CAD (father, brother) - Social History Hx Tobacco Use: Yes Hx Alcohol Use: Yes (social) Hx Substance Use: No - Immunization History Hx Tetanus Toxoid Vaccination: No Hx Influenza Vaccination: No Hx Pneumococcal Vaccination: No ED Course And Treatment O2 Sat by Pulse Oximetry: 97 Progress - Data Reviewed Data Reviewed: Old records Disposition - Disposition Forms: [employer] (Chinese)
[2018-05-11 10:13] VITALS: PULSE 56
--- NOTE | 2018-05-11 10:17 | C.PDOC ---
History Of Present Illness 48 y/o male presents to the ED with complaints of worsening facial numbness, sinus congestion, and feeling odd and out of it for 3 weeks. He was discharged on 04/10 s/p chest pain work-up, including negative stress test. Patient states his medication doses were adjusted at that time. Since then, patient reports developing symptoms along with occasional headache. No fever or weight loss. 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 Time Seen by Provider: 05/11/18 09:51 Chief Complaint (Nursing): High Blood Pressure History Per: Patient History/Exam Limitations: no limitations Onset/Duration Of Symptoms: Days Current Symptoms Are (Timing): Still Present Past Medical History Reviewed: Historical Data, Nursing Documentation, Vital Signs Vital Signs: Last Vital Signs Temp 97.7 F 05/11/18 09:40 Pulse 56 L 05/11/18 10:08 Resp 20 05/11/18 09:40 BP 126/82 05/11/18 10:08 Pulse Ox 97 05/11/18 09:40 - Medical History PMH: HTN Denies: Chronic Kidney Disease Other Surgeries: Bilateral hip surgery Family History: States: [place], CAD (father, brother) - Social History Hx Tobacco Use: Yes Hx Alcohol Use: Yes (social) Hx Substance Use: No - Immunization History Hx Tetanus Toxoid Vaccination: No Hx Influenza Vaccination: No Hx Pneumococcal Vaccination: No Review Of Systems Except As Marked, All Systems Reviewed And Found Negative. Constitutional: Positive for: Other (Feeling "out of it"). Negative for: Fever, Weight loss Eyes: Negative for: Vision Change ENT: Positive for: Nose Congestion (sinus) Cardiovascular: Negative for: Chest Pain Respiratory: Negative for: Shortness of Breath Gastrointestinal: Negative for: Vomiting, Abdominal Pain Genitourinary: Negative for: Dysuria, Hematuria Skin: Negative for: Rash Neurological: Positive for: Numbness (facial), Headache (occasional). Negative for: Weakness, Incoordination, Change in Speech, Dizziness Physical Exam - Physical Exam Appears: Non-toxic, No Acute Distress, Other (Blood pressure 125/70) Skin: Normal Color, Warm, Dry Head: Atraumatic, Normacephalic Eye(s): bilateral: Normal Inspection, PERRL, EOMI Oral Mucosa: Moist Neck: Normal ROM Chest: Symmetrical Cardiovascular: Rhythm Regular, No Murmur Respiratory: Normal Breath Sounds, No Rales, No Rhonchi, No Wheezing, Other (NARD) Gastrointestinal/Abdominal: Soft, No Tenderness, No Distention Back: Normal Inspection Extremity: Bilateral: Atraumatic, Normal Color And Temperature, Normal ROM Neurological/Psych: Oriented x3, Normal Speech, Normal Cranial Nerves (2-12 intact), Other (No focal deficits) ED Course And Treatment - Laboratory Results Result Diagrams: 05/11/18 11:14 05/11/18 11:14 O2 Sat by Pulse Oximetry: 97 (RA) Pulse Ox Interpretation: Normal - CT Scan/US CT HEAD Other Rad Studies (CT/US): Read By Radiologist, Radiology Report Reviewed CT/US Interpretation: Accession No. : [id number]. Patient Name / ID : SHANE MENDOZA / [id number]. Exam Date : 05/11/2018 10:45:54 ( Approved ). Study Comment : Sex / Age : M / 48Y. Creator : Alondra Paez. Dictator : Violetta Portillo MD. Poultry Breeder : Nurse Epidemiologist : Violetta Portillo MD. Approver2 : Report Date : 05/11/2018 10:58:25. My Comment : . Date of service: 05/11/2018. PROCEDURE: CT HEAD WITHOUT CONTRAST. HISTORY: HEADACHE, PARESTHESIA. COMPARISON: None available. TECHNIQUE: Axial computed tomography images were obtained through the head/brain without intravenous contrast. Radiation dose: Total exam DLP = 1184.95 mGy-cm. This CT exam was performed using one or more of the following dose reduction techniques: Automated exposure control, adjustment of the mA and/or kV according to patient size, and/or use of iterative reconstruction technique. FINDINGS: HEMORRHAGE: No intracranial hemorrhage. BRAIN: No mass effect or edema. Intracranial atherosclerosis. The madsen-white matter differentiation appears intact. Please note that MRI with diffusion imaging is more sensitive in the detection of acute ischemic event. VENTRICLES: No hydrocephalus. CALVARIUM: Unremarkable. PARANASAL SINUSES: Mild mucosal thickening of the ethmoid air cells and sphenoid sinuses. MASTOID AIR CELLS: Unremarkable as visualized. No inflammatory changes. OTHER FINDINGS: None. IMPRESSION: No acute intracranial pathology identified. CT MAXILLOFACIAL Other Rad Studies (CT/US): Read By Radiologist, Radiology Report Reviewed CT/US Interpretation: Accession No. : [id number]. Patient Name / ID : SHANE MENDOZA / [id number]. Exam Date : 05/11/2018 10:48:57 ( Approved ). Study Comment : Sex / Age : M / 48Y. Creator : Alondra Paez. Dictator : Adam Hammer MD. Poultry Breeder : Nurse Epidemiologist : Adam Hammer MD. Approver2 : Report Date : 05/11/2018 10:58:31. My Comment : . Date of service: 05/11/2018. PROCEDURE: CT SINUSES WITHOUT CONTRAST. HISTORY: SINUS PAIN. COMPARISON: None available. TECHNIQUE: Contiguous axial CT images of the paranasal sinuses were obtained. Coronal and sagittal reformats were generated. Radiation dose: Total exam DLP = 961.59 mGy-cm. This CT exam was performed using one or more of the following dose reduction techniques: Automated exposure control, adjustment of the mA and/or kV according to patient size, and/or use of iterative reconstruction technique. FINDINGS: FRONTAL SINUSES: Clear. ETHMOID SINUSES: Ciqj-tp-[id number] ethmoid air cell opacification. SPHENOID SINUSES: Clear. MAXILLARY SINUSES: Clear. SINUS DRAINAGE: Osteomeatal complexes, frontal recesses and sphenoethmoid recesses clear. NASAL SEPTUM: Nasal septum deviation to the left. MASS: None. SKULL BASE: Unremarkable. TEMPORAL BONES: Middle ears and mastoid grossly unremarkable. OTHER FINDINGS: None. IMPRESSION: Ooym-ci-amhmbngo ethmoid air cell opacification. Nasal septum deviation to the left. Progress - Re-Evaluation Re-evaluation Note: 05/11/18 11:33 NEURO INTACT, LABS CT REVIEWED. DC ADVISED POSISBLE NEED FU PMD, NEURO, ENT - Data Reviewed Data Reviewed: Lab, Diagnostic imaging, Old records Medical Decision Making Medical Decision Making: Impression: High blood pressure, Facial numbness, Congestion Plan: --BMP --CBC --Head CT --Maxillofacial CT Disposition Counseled Patient/Family Regarding: Studies Performed, Diagnosis, Need For Followup - Disposition Referrals: YOUR,PMD [Other] Disposition: HOME/ ROUTINE Disposition Time: 11:33 Condition: GOOD Instructions: Sinus Headache (DC) Forms: [facility] (Yi), Work Excuse - Clinical Impression Clinical Impression: Sinus headache - Scribe Statement The provider has reviewed the documentation as recorded by the Scribe Meghana Null Provider Attestation: All medical record entries made by the Scribe were at my direction and personally dictated by me. I have reviewed the chart and agree that the record accurately reflects my personal performance of the history, physical exam, medical decision making, and the department course for this patient. I have also personally directed, reviewed, and agree with the discharge instructions and disposition.
[2018-05-11 11:18] LABS: BASO % 0.5 % (0.0-2.0); EOS # 0.1 K/uL (0.0-0.7); EOS % 1.2 % (0.0-4.0); HEMOGLOBIN 14.5 g/dL (12.0-18.0); LYMPH # 1.3 K/uL (1.0-4.3); LYMPH % 21.1 % (20.0-40.0); MEAN CELL VOLUME 93.4 fL (80.0-94.0); MEAN CORPUSCULAR HEMOGLOBIN 31.5 pg (27.0-31.0); MEAN CORPUSCULAR HGB CONC 33.7 g/dL (33.0-37.0); MEAN PLATELET VOLUME 8.8 fL (7.2-11.7); MONO # 0.3 K/uL (0.0-0.8); MONO % 4.5 % (0.0-10.0); NEUT # 4.6 K/uL (1.8-7.0); NEUT % 72.7 % (50.0-75.0); NRBC % 0.2 % (0.0-2.0); RBC 4.59 Mil/uL (4.40-5.90); RED CELL DISTRIBUTION WIDTH 13.8 % (11.5-14.5); WHITE BLOOD COUNT 6.4 K/uL (4.8-10.8)
--- NOTE | 2018-05-11 11:25 | CT ---
Date of service: 05/11/2018 PROCEDURE: CT HEAD WITHOUT CONTRAST. HISTORY: HEADACHE, PARESTHESIA COMPARISON: None available. TECHNIQUE: Axial computed tomography images were obtained through the head/brain without intravenous contrast. Radiation dose: Total exam DLP = 1184.95 mGy-cm. This CT exam was performed using one or more of the following dose reduction techniques: Automated exposure control, adjustment of the mA and/or kV according to patient size, and/or use of iterative reconstruction technique. FINDINGS: HEMORRHAGE: No intracranial hemorrhage. BRAIN: No mass effect or edema. Intracranial atherosclerosis. The madsen-white matter differentiation appears intact. Please note that MRI with diffusion imaging is more sensitive in the detection of acute ischemic event. VENTRICLES: No hydrocephalus. CALVARIUM: Unremarkable. PARANASAL SINUSES: Mild mucosal thickening of the ethmoid air cells and sphenoid sinuses. MASTOID AIR CELLS: Unremarkable as visualized. No inflammatory changes. OTHER FINDINGS: None. IMPRESSION: No acute intracranial pathology identified.
--- NOTE | 2018-05-11 11:29 | CT ---
Date of service: 05/11/2018 PROCEDURE: CT SINUSES WITHOUT CONTRAST HISTORY: SINUS PAIN COMPARISON: None available. TECHNIQUE: Contiguous axial CT images of the paranasal sinuses were obtained. Coronal and sagittal reformats were generated. Radiation dose: Total exam DLP = 961.59 mGy-cm. This CT exam was performed using one or more of the following dose reduction techniques: Automated exposure control, adjustment of the mA and/or kV according to patient size, and/or use of iterative reconstruction technique. FINDINGS: FRONTAL SINUSES: Clear. ETHMOID SINUSES: [id number]-tp-xzjbterd ethmoid air cell opacification. SPHENOID SINUSES: Clear. MAXILLARY SINUSES: Clear. SINUS DRAINAGE: Osteomeatal complexes, frontal recesses and sphenoethmoid recesses clear. NASAL SEPTUM: Nasal septum deviation to the left. MASS: None. SKULL BASE: Unremarkable. TEMPORAL BONES: Middle ears and mastoid grossly unremarkable. OTHER FINDINGS: None. IMPRESSION: Ceqp-vi-rgzanotx ethmoid air cell opacification. Nasal septum deviation to the left.
[2018-05-11 11:31] LABS: BLOOD UREA NITROGEN 11 mg/dL (9-20); CALCIUM 9.1 mg/dl (8.6-10.4); GFR NON-AFRICAN AMERICAN > 60
[2018-05-11 11:52] VITALS: BP 119/66; RESP 12; TEMP 98.2; O2SAT 98
== END 2018-05-11 11:49 | disposition home or self-care (01) ==
LOC: C.ER 09:33
DX: R51 Headache (principal)